=== PATIENT | male | born 1960 | race African-American/Black ===

== ENCOUNTER 2020-02-29 09:21 | Emergency (ER) | payer OTHER ==
[~2020-02-29] VITALS: Ht 180.3 cm; Wt 80.0 kg
[2020-02-29] MEDS ORDERED: MORPHINE SULFATE 4 MG/ML CPJ (NOT FOR IM USE) IV STA (09:49)
[2020-02-29] MEDS ORDERED: ONDANSETRON HCL 4MG/2ML INJ IV STA (09:49)
[2020-02-29] MEDS ORDERED: TETANUS, DIPHTHERIA, PERTUSSIS VAC/PF 0.5ML (>7YR OLD) IM ONE (10:00)
[2020-02-29] MEDS ORDERED: SODIUM CHLORIDE 0.9% 1,000 ML IV ONE (10:00)
[2020-02-29 10:46] LABS: BASOPHILS % 0.5 % (0.0-2.0); EOSINOPHILS % 1.6 % (0.0-5.0); HEMATOCRIT. 44.4 % (42.0-52.0); MEAN CORPUSCULAR HEMOGLOBIN 31.7 pg (28.0-32.0); MEAN CORPUSCULAR VOLUME 93.6 fL (80.0-94.0); MEAN PLATELET VOLUME 7.5 fl (7.4-10.4); MONOCYTES % 7.3 % (2.0-8.0); NEUTROPHILS % 57.6 % (40.0-76.0); PLATELET 248 x1000/uL (130-400); RED BLOOD CELL COUNT 4.74 mill/uL (4.7-6.1)
[2020-02-29 11:00] LABS: CHLORIDE 102 mEq/L (98-107); INR 1.1; PROTHROMBIN TIME 11.4 sec (9.6-11.0)
[2020-02-29 11:04] LABS: ETHANOL BLOOD < 10 mg/dL
[2020-02-29] MEDS ORDERED: POTASSIUM CHLORIDE 20MEQ TABLET SR PO ONE (11:15)
[2020-02-29] MEDS ORDERED: MORPHINE SULFATE 4 MG/ML CPJ (NOT FOR IM USE) IV ONE (11:15)
[2020-02-29] MEDS ORDERED: IOHEXOL-300 100 ML BOTTLE ONE (13:36)
[2020-02-29 15:51] VITALS: BP 160/62
[2020-02-29 15:52] LABS: *AMPHETAMINES SCREEN URINE NEGATIVE (NEGATIVE)
[2020-02-29 15:53] LABS: *BARBITURATES SCREEN URINE NEGATIVE (NEGATIVE); *BENZODIAZEPINES SCREEN URINE NEGATIVE (NEGATIVE); CANNABINOID URINE SCREEN NEGATIVE (NEGATIVE); METHADONE URINE SCREEN NEGATIVE (NEGATIVE); OPIATES URINE SCREEN PRESUMTIVE POSITIVE (NEGATIVE); PHENCYCLIDINE URINE SCREEN NEGATIVE (NEGATIVE)
[2020-02-29 15:54] LABS: *COCAINE SCREEN URINE NEGATIVE (NEGATIVE)
== END 2020-02-29 16:11 | disposition home or self-care (01) ==
LOC: ER 09:21
DX: S22.32XA Fracture of one rib, left side, initial encounter for closed fracture (principal); V49.49XA Driver injured in collision with other motor vehicles in traffic accident, initial encounter; Y93.89 Activity, other specified; Y92.89 Other specified places as the place of occurrence of the external cause; Y99.8 Other external cause status; I10 Essential (primary) hypertension
CPT/HCPCS: 36415; 70450; 71045; 71260; 73030; 74177; 80053; 80305; 80320; 85025; 85610; 90471; 90715; 93005; 96361; 96374; 96375; 99285; J2270; J2405; J7030; Q9967; G0480